=== PATIENT | male | born 1950 | race Caucasian/White ===

== ENCOUNTER 2019-02-28 15:36 | Emergency (ER) | payer MEDICARE, OTHER ==
[~2019-02-28] VITALS: Ht 188 cm; Wt 97.5 kg
[2019-02-28] MEDS ORDERED: ZOLOFT25 MG PO (15:43)
== END 2019-02-28 16:54 | disposition home or self-care (01) ==
LOC: ED 15:36
PROC: 0HQEXZZ Repair Left Lower Arm Skin, External Approach (ICD-10-PCS; principal; 2019-02-28)
DX: S51.812A Laceration without foreign body of left forearm, initial encounter (principal); Z79.899 Other long term (current) drug therapy; W27.0XXA Contact with workbench tool, initial encounter
CPT/HCPCS: 12004; 90471; 90715; 99282-25

== ENCOUNTER 2019-03-07 08:51 | Emergency (ER) | payer MEDICARE, OTHER ==
[~2019-03-07] VITALS: Ht 188 cm; Wt 97.5 kg
[~2019-03-07 08:51] MED LIST: ZOLOFT25 MG PO
--- OUTSIDE RECORDS SUMMARY | 2019-03-07 08:54 | XMS ---
PreManage Notification: SALLY BARRIOS Security Environmental Manager Events No recent Security Events currently on file CRITERIA MET - [facility] - 2 Visits in 30 Days CARE PROVIDERS There are no care providers on record at this time. Rylee has no Care Guidelines for this patient. Brittni VISIT COUNT (12 MO.) 2 [facility] TOTAL 2 NOTE: Visits indicate total known visits. ED/C VISIT TRACKING (12 MO.) 03/07/2019 08:52 [facility] TYPE: Emergency COMPLAINT: - STITCHES REMOVAL 02/28/2019 15:36 [facility] TYPE: Emergency COMPLAINT: - LEFT ARM LAC DIAGNOSES: - Contact with workbench tool, initial encounter - Laceration without foreign body of left forearm, initial encounter - Other snf (current) drug therapy INPATIENT VISIT TRACKING (12 MO.) No inpatient visits to display in this time frame [email or web address]
== END 2019-03-07 09:32 | disposition home or self-care (01) ==
LOC: ED 08:51
DX: Z48.02 Encounter for removal of sutures (principal)

== ENCOUNTER 2019-03-14 07:11 | Emergency (ER) | payer MEDICARE, OTHER ==
[~2019-03-14] VITALS: Ht 188 cm; Wt 97.5 kg
--- OUTSIDE RECORDS SUMMARY | 2019-03-14 07:14 | XMS ---
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 Brittni VISIT COUNT (12 MO.) 3 [facility] TOTAL 3 NOTE: Visits indicate total known visits. ED/C VISIT TRACKING (12 MO.) 03/14/2019 07:12 [facility] TYPE: Emergency COMPLAINT: - STITCHES REMOVAL 03/07/2019 08:52 [facility] TYPE: Emergency COMPLAINT: - STITCHES REMOVAL/MSE HOME DIAGNOSES: - Encounter for removal of sutures 02/28/2019 15:36 [facility] TYPE: Emergency COMPLAINT: - LEFT ARM LAC DIAGNOSES: - Contact with workbench tool, initial encounter - Laceration without foreign body of left forearm, initial encounter - Other terminal carman (current) drug therapy INPATIENT VISIT TRACKING (12 MO.) No inpatient visits to display in this time frame [email or web address]
== END 2019-03-14 07:29 | disposition home or self-care (01) ==
LOC: ED 07:11
DX: Z48.02 Encounter for removal of sutures (principal)

== ENCOUNTER 2020-07-21 13:06 | Day surgery (SDC) | payer MEDICARE, OTHER ==
[~2020-07-21] VITALS: Ht 188 cm; Wt 95.5 kg
--- NOTE | ~2020-07-21 | OR ---
[facility] [address] [place], [place] [address] Draft DATE OF OPERATION: 07/21/2020 SURGEON: Sally Bran MD PREOPERATIVE DIAGNOSIS: Episodic rectal bleeding, bright red, painless. POSTOPERATIVE DIAGNOSES: 1. Mild proctitis. 2. Minimal internal hemorrhoidal change, otherwise normal. PROCEDURE: Total colonoscopy to cecum with biopsy of rectum. ANESTHESIA: Intravenous sedation, fentanyl 150 mcg and Versed 5 mg. INDICATIONS: This 70-year-old white man is a patient of Mannie Ohara PA-C. He had several weeks ago episodes of bright red rectal bleeding, which was painless. He has no family history of colon cancer or inflammatory bowel disease. His symptoms have largely resolved. He attributed his bleeding to "hemorrhoids." He is admitted at this time to undergo colonoscopy to better characterize the problem, understands the risks of bleeding, infection, and perforation. FINDINGS: The prep was excellent. Complete colonoscopy was undertaken to the cecum without question. He had a mild proctitis and a few internal hemorrhoids, but no other findings of concern. DESCRIPTION OF PROCEDURE: The patient was brought to endoscopy suite and placed in lateral decubitus position given intravenous sedation to the point of slurred speech and nystagmus. Digital rectal examination was normal. An Olympus video colonoscope was passed into the rectum and manipulated throughout the colon, ultimately intubating the cecum. The ileocecal valve and appendiceal orifice appeared normal. The scope was withdrawn from that point and examination throughout showed no sign of polyps or colitis, diverticular formation, or other abnormality. PATIENT NAME: SALLY BARRIOS OPERATIVE REPORT DATE OF : 52 REPORT #: [id number] PHYSICIAN: SALLY BRAN MD PCP: MANNIE OHARA PAC REPORT IS CONFIDENTIAL AND NOT TO BE RELEASED WITHOUT AUTHORIZATION [facility] [address] [place] [id number] Draft Retroflexed view of the rectum did show some internal hemorrhoidal change, a single hypertrophied anal papilla and mild inflammation. Biopsies were obtained. The scope was straightened, withdrawn, and removed. The patient was taken to the recovery room in good condition. CONCLUDING DIAGNOSIS: Mild proctitis, internal hemorrhoidal change, otherwise normal. PLAN: Recommend high-fiber diet. If bleeding should recur, consideration for hemorrhoidal banding might be made at that point. Repeat colonoscopy in 10 years or sooner if clinically indicated. MD RONNI Dorsey/ERICH /[id number] Copies: ~ PATIENT NAME: SALLY BARRIOSNE OPERATIVE REPORT DATE OF : 52 REPORT #: [id number] PHYSICIAN: SALLY BRAN MD PCP: MANNIE OHARA PAC REPORT IS CONFIDENTIAL AND NOT TO BE RELEASED WITHOUT AUTHORIZATION
[2020-07-21] MEDS ORDERED: ATORVASTATIN CA40 MG PO (13:24)
--- NOTE | 2020-07-22 13:36 | PATH ---
[facility] [address] [place], [place] [address] Signed SPECIMEN(S): A RECTUM SPECIMEN SOURCE: A. RECTUM CLINICAL HISTORY: Screening, rectal bleeding. Post-op: Mild proctitis, internal hemorrhoids. MICROSCOPIC DESCRIPTION: Histologic sections of all submitted blocks are examined by light microscopy. These findings, together with the gross examination, support the pathologic diagnosis. FINAL PATHOLOGIC DIAGNOSIS: Rectum, biopsy: - Colonic mucosa with no significant pathologic changes. BRP:cml:C2NR GROSS DESCRIPTION: The specimen, labeled "SARMAD," and designated on the requisition "rectum biopsy," is received in formalin and consists of two fragments of soft tissue (0.3 x 0.3 x 0.2 cm in aggregate). The specimen is submitted entirely in cassette (A1). AC (under the direct supervision of a pathologist) The Gross Description was prepared using a voice recognition system. The report was reviewed for accuracy; however, sound-alike word errors, addition and/or deletions may occur. If there is any question about this report, please contact Client Services. PERFORMING LABORATORY: The technical component was performed by [employer], [address] [place] [id number] (Soaking Pit Operator: Mary Silva MD; CLIA# [id number]). [facility], [address] [address] (CLIA# [id number]). Diagnostician: Ed Rdoarte MD Pathologist Electronically Signed 07/22/2020 Copies: PATIENT NAME: SALLY BARRIOS PATHOLOGY DATE OF : 52 REPORT #: [id number] PHYSICIAN: [facility] PATHOLOGY PCP: MANNIE OHARA PAC REPORT IS CONFIDENTIAL AND NOT TO BE RELEASED WITHOUT AUTHORIZATION [address] [address] Signed ~ PATIENT NAME: SALLY BARRIOS PATHOLOGY DATE OF : 52 REPORT #: [id number] PHYSICIAN: [facility] PATHOLOGY PCP: MANNIE OHARA PAC REPORT IS CONFIDENTIAL AND NOT TO BE RELEASED WITHOUT AUTHORIZATION
== END 2020-07-21 15:20 | disposition home or self-care (01) ==
LOC: OPS 13:06 → DS 14:00 → OPS 14:00
PROVIDERS: ATTEND Surgery
PROC: 0DBP8ZX Excision of Rectum, Via Natural or Artificial Opening Endoscopic, Diagnostic (ICD-10-PCS; principal; 2020-07-21 14:00)
DX: K62.5 Hemorrhage of anus and rectum (principal); K62.89 Other specified diseases of anus and rectum; K64.8 Other hemorrhoids; F32.9 Major depressive disorder, single episode, unspecified; E78.5 Hyperlipidemia, unspecified; R63.4 Abnormal weight loss; Z79.899 Other long term (current) drug therapy; Z79.52 Long term (current) use of systemic steroids
CPT/HCPCS: 99153; G0500; J2250; J3010; J7121